=== PATIENT | female | born 1950 | race Caucasian/White ===

== ENCOUNTER 2023-02-06 06:03 | Day surgery (SDC) | payer MEDICARE, OTHER ==
[2023-02-05 16:19] LABS: BASOPHILS # (AUTO) 0.1 X10'3 (0-0.2); BASOPHILS % (AUTO) 0.7 % (0-1); EOSINOPHILS # (AUTO) 0.3 X10'3 (0-0.9); EOSINOPHILS % (AUTO) 2.4 % (0-6); HEMATOCRIT 43.1 % (35.0-45.0); HEMOGLOBIN 13.7 g/dl (12.0-16.0); LYMPHOCYTES # (AUTO) 2.6 X10'3 (1.1-4.8); LYMPHOCYTES % (AUTO) 24.2 % (21-51); MEAN CORPUSCULAR HEMOGLOBIN 28.4 PG (27.0-31.0); MEAN CORPUSCULAR HGB CONC 31.9 g/dL (33.0-36.5); MEAN PLATELET VOLUME 8.4 FL (7.4-10.4); MONOCYTES % (AUTO) 9.3 % (2-12); NEUTROPHILS # (AUTO) 6.9 X10'3 (1.8-7.7); NEUTROPHILS % (AUTO) 63.4 % (42-75); PLATELET COUNT 246 X10'3 (140-440); RED BLOOD COUNT 4.83 X10'6 (4.20-5.60); RED CELL DISTRIBUTION WIDTH 16.3 % (11.5-14.5); WHITE BLOOD COUNT 10.8 X10'3 (4.5-11.0)
[2023-02-05 16:44] LABS: APTT 29 SECONDS (22-32); INR 0.9 INR; PROTHROMBIN TIME 10.1 SECONDS (9.0-12.0)
[2023-02-05 16:57] LABS: ALBUMIN 3.9 G/DL (3.4-5.0); ANION GAP 7 (8-16); BLOOD UREA NITROGEN 20 MG/DL (7-18); BUN/CREATININE RATIO 21.7 (10.0-20.0); CALCIUM 9.6 MG/DL (8.5-10.1); CHLORIDE 100 MMOL/L (99-107); CREATININE 0.92 MG/DL (0.40-0.90); GLUCOSE 115 MG/DL (70-104); POTASSIUM 4.3 MMOL/L (3.5-5.1); SODIUM 141 MMOL/L (135-145); TOTAL CARBON DIOXIDE 34.5 MMOL/L (24-32); eGFR 60 ML/MIN
[~2023-02-06] VITALS: Ht 160 cm; Wt 127.0 kg
[2023-02-06] VITALS (11 sets, daily range): BP systolic 120–135; BP diastolic 62–70; PULSE 60–87; RESP 11–18; TEMP 98; O2SAT 92–93
[~2023-02-06 06:03] MED LIST: ATOR20TA PO; ONDA8TAB13 PO; VERA360C2 PO
[2023-02-06] MEDS ORDERED: SPIR25TA5 PO (06:37)
[2023-02-06] MEDS ORDERED: ASPI-1071 PO (06:37)
[2023-02-06] MEDS ORDERED: diphenhydrAMINE 25mg capsule PO PRN (06:40)
[2023-02-06] MEDS ORDERED: LORazepam 0.5 MG tablet PO PRN (06:40)
[2023-02-06] MEDS ORDERED: normal saline 1,000 ML IV SCH (06:40)
[2023-02-06] MEDS ORDERED: fentaNYL/PF 50MCG/1 ML 2ML syringe ONE (07:29)
[2023-02-06] MEDS ORDERED: iohexol 350MG/ML 100ml bottle IV ONE ×2 (07:29→08:54)
[2023-02-06] MEDS ORDERED: iohexol 350 MG/ML 50ML vial IV ONE (07:29)
[2023-02-06] MEDS ORDERED: heparin 1,000unit/ml 10ml vial 10 ML ONE (07:29)
[2023-02-06] MEDS ORDERED: LIDOcaine 1% (10mg/ml) 2ml vial ONE (07:29)
[2023-02-06] MEDS ORDERED: verapamil 2.5 mg/ml inj IV ONE (07:29)
[2023-02-06] MEDS ORDERED: midazolam 1 mg/ML 2ml injection ONE (07:29)
[2023-02-06] MEDS ORDERED: nitroGLYCERIN-Tridil 50MG/D5W 250 ML IV ONE (07:43)
[2023-02-06] MEDS ORDERED: LIDOcaine 1% (10mg/ml)w/preservative inj. 20ml MDV ONE (08:43)
[2023-02-06 09:07] LABS: ISTAT HGB ART 13.9 g/dl (12.0-16.0); ISTAT Hct ART 41 %PCV (35-45); ISTAT O2 SATURATION ARTERIAL 86 % (95-98); ISTAT SOURCE ART
[2023-02-06] MEDS ORDERED: ondansetron/PF 4mg/2ml inj ONE (09:18)
[2023-02-06] MEDS ORDERED: normal saline 1000ml 1,000 ML IV SCH (10:00)
[2023-02-06 14:58] LABS: ISTAT HGB MIX 13.9 g/dl (12.0-16.0); ISTAT Hct MIX 41 %PCV (35-45); ISTAT O2 SATURATION MIX VENOUS 61 % (60-80); ISTAT SOURCE VEN
== END 2023-02-06 15:00 | disposition home or self-care (01) ==
LOC: SSTAY O 06:03
PROVIDERS: ATTEND Internal Medicine Cardiovascular Disease
DX: I25.10 Atherosclerotic heart disease of native coronary artery without angina pectoris (principal); E78.5 Hyperlipidemia, unspecified; I10 Essential (primary) hypertension; I48.91 Unspecified atrial fibrillation; I47.1 Supraventricular tachycardia; E66.9 Obesity, unspecified; Z68.42 Body mass index [BMI] 45.0-49.9, adult; Z98.41 Cataract extraction status, right eye; Z98.42 Cataract extraction status, left eye; Z98.890 Other specified postprocedural states; Z96.653 Presence of artificial knee joint, bilateral; Z79.899 Other long term (current) drug therapy; Z88.5 Allergy status to narcotic agent; Z82.49 Family history of ischemic heart disease and other diseases of the circulatory system
CPT/HCPCS: 36415; 76937; 80048; 82803; 85014; 85025; 85610; 85730; 93005; 93460; 99152; 99153; J1644; J2250; J2405; J3010; J3490; J7030; Q0163; Q9967; A4620; A6258; A6402; A6449; C1725; C1751; C1769; C1894